=== PATIENT | female | born 2005 | race Two or more races ===

== ENCOUNTER 2023-03-06 18:43 | Emergency (ER) | payer OTHER ==
[~2023-03-06] VITALS: Ht 165.1 cm; Wt 56.8 kg
[2023-03-06 19:30] VITALS: TEMP 98
[2023-03-06 19:40] VITALS: BP 110/84; PULSE 86; RESP 16
[2023-03-06] MEDS: KETOROLAC TROMETHAMINE 30 MG/ML VIAL IM ONE (19:59)
[2023-03-06] MEDS ORDERED: IBUP-1506 PO (20:49)
== END 2023-03-06 21:07 | disposition home or self-care (01) ==
LOC: EMS 18:45
DX: S13.4XXA Sprain of ligaments of cervical spine, initial encounter (principal); V89.2XXA Person injured in unspecified motor-vehicle accident, traffic, initial encounter; Y93.89 Activity, other specified; Y92.89 Other specified places as the place of occurrence of the external cause; Y99.8 Other external cause status
CPT/HCPCS: 99283; 72040; 96372; J1885

== ENCOUNTER 2023-09-21 11:22 | Emergency (ER) | payer OTHER ==
[~2023-09-21] VITALS: Ht 162.6 cm; Wt 68.2 kg
[~2023-09-21 11:22] MED LIST: IBUP-1506 PO
[2023-09-21 11:31] VITALS: BP 113/84; PULSE 102; RESP 18; TEMP 98
[2023-09-21] MEDS: IBUPROFEN 600 MG TABLET PO ONE (14:37)
[2023-09-21] MEDS: ACETAMINOPHEN/CODEINE 300-30 MG TABLET PO ONE (14:37)
[2023-09-21 14:47] LABS: BASOPHILS % (AUTO) 0.4 % (0.0-2.0); EOSINOPHILS % (AUTO) 0.4 % (1.0-6.0); HEMATOCRIT 40.8 % (36-46); HEMOGLOBIN 13.5 g/dL (12.0-16.0); LYMPHOCYTES % (AUTO) 29.2 % (22.0-44.0); MEAN CORPUSCULAR HEMOGLOBIN 31.8 pg (26.0-34.0); MEAN CORPUSCULAR VOLUME 96 fL (80-100); MONOCYTES % (AUTO) 15.1 % (2.0-9.0); NEUTROPHILS # (AUTO) 3.7 K/uL (1.8-7.7); NEUTROPHILS % (AUTO) 54.9 % (40.0-70.0); PLATELET COUNT (AUTO) 246 K/uL (150-450); RED BLOOD CELL COUNT(AUTO) 4.23 MIL/uL (4.00-5.20); RED CELL DISTRIBUTION WIDTH 13.3 % (11.5-14.5); WHITE BLOOD COUNT (AUTO) 6.7 K/uL (4.5-11.0)
[2023-09-21 14:56] LABS: ANION GAP 10 mmol/L (8-16); CALCIUM, TOTAL 9.3 mg/dL (8.8-10.5); CARBON DIOXIDE 27 mmol/L (22-29); CHLORIDE 103 mmol/L (98-107); CREATININE 0.84 mg/dL (0.60-1.30); GLOMERULAR FILTR. RATE CALC > 60 mL/min (>60); GLUCOSE,RANDOM 88 mg/dL (70-110); POTASSIUM 4.6 mmol/L (3.5-5.1); SODIUM SERUM 140 mmol/L (136-145); UREA NITROGEN, BLOOD 19 mg/dL (7-18)
[2023-09-21] MEDS: METHOCARBAMOL 500 MG TABLET PO ONE (14:58)
[2023-09-21] MEDS ORDERED: IBUP-45 PO (16:03)
[2023-09-21] MEDS ORDERED: ACET-2080 PO (16:03)
[2023-09-21] MEDS ORDERED: METH-659 PO (16:03)
== END 2023-09-21 16:21 | disposition home or self-care (01) ==
LOC: EMS 11:22
DX: S29.012A Strain of muscle and tendon of back wall of thorax, initial encounter (principal); G44.209 Tension-type headache, unspecified, not intractable; X58.XXXA Exposure to other specified factors, initial encounter; Y93.89 Activity, other specified; Y92.89 Other specified places as the place of occurrence of the external cause; Y99.8 Other external cause status
CPT/HCPCS: 80048; 84703; 85025; 99284

== ENCOUNTER 2023-11-26 13:35 | Emergency (ER) | payer OTHER ==
[~2023-11-26] VITALS: Ht 162.6 cm; Wt 63.6 kg
[~2023-11-26 13:35] MED LIST changes: +ACET-2080 PO; +IBUP-45 PO; +METH-659 PO
[2023-11-26] MEDS ORDERED: ETON68IM4 SD (13:45)
[2023-11-26] MEDS: ACETAMINOPHEN 500 MG TABLET PO ONE (14:32)
[2023-11-26 14:34] LABS: COVID AG,FIA SOURCE NASAL SWAB
[2023-11-26 14:54] LABS: INFLUENZA TYPE A NEGATIVE FOR TYPE A (NEGATIVE); INFLUENZA TYPE B NEGATIVE FOR TYPE B (NEGATIVE)
[2023-11-26 15:08] LABS: SARS-COV2 (COVID) ANTIGEN,FIA Positive (Negative)
[2023-11-26 17:21] VITALS: BP 107/60; PULSE 72; RESP 18; TEMP 98.3
== END 2023-11-26 17:41 | disposition home or self-care (01) ==
LOC: EMS 13:35
DX: U07.1 COVID-19 (principal)
CPT/HCPCS: 87804; 99283

== ENCOUNTER 2023-12-01 10:01 | Emergency (ER) | payer OTHER ==
[~2023-12-01] VITALS: Ht 162.6 cm; Wt 69.1 kg
[~2023-12-01 10:01] MED LIST changes: -ACET-2080 PO; +ETON68IM4 SD; -IBUP-1506 PO; -IBUP-45 PO; -METH-659 PO
[2023-12-01 10:26] VITALS: BP 126/64; PULSE 70; RESP 20; TEMP 98.3
[2023-12-01 10:32] LABS: COVID AG,FIA SOURCE NASAL SWAB
[2023-12-01 10:52] LABS: SARS-COV2 (COVID) ANTIGEN,FIA Negative (Negative)
== END 2023-12-01 11:37 | disposition home or self-care (01) ==
LOC: EMS 10:01
DX: J98.9 Respiratory disorder, unspecified (principal); Z20.822 Contact with and (suspected) exposure to COVID-19
CPT/HCPCS: 99283

== ENCOUNTER 2024-03-16 19:39 | Emergency (ER) | payer OTHER ==
[~2024-03-16] VITALS: Ht 162.6 cm; Wt 72.7 kg
[2024-03-16 19:53] VITALS: TEMP 98.5
[2024-03-16 21:17] LABS: APPEARANCE,URINE CLEAR (CLEAR); BILIRUBIN,URINE NEGATIVE (NEGATIVE); COLOR,URINE LIGHT YELLOW (YELLOW); GLUCOSE, URINE (UA) NEGATIVE (NEGATIVE); KETONES,URINE NEGATIVE (NEGATIVE); LEUKOCYTE ESTERASE ,URINE NEGATIVE (NEGATIVE); NITRATE,URINE NEGATIVE (NEGATIVE); OCCULT BLOOD,URINE NEGATIVE (NEGATIVE); PROTEIN,URINE NEGATIVE (NEGATIVE); SPECIFIC GRAVITIY, URINE 1.026 (1.003-1.030); UROBILINOGEN,URINE <=1.0 mg/dL (<=1.0)
[2024-03-16 21:47] LABS: BACTERIA,URINE Rare /HPF (None Seen); RBC,URINE None Seen /HPF (0-2); WBC,URINE 0-2 /HPF (0-5)
[2024-03-16 22:35] LABS: BASOPHILS % (AUTO) 0.8 % (0.0-2.0); EOSINOPHILS % (AUTO) 3.5 % (1.0-6.0); HEMATOCRIT 38.6 % (36-46); HEMOGLOBIN 12.8 g/dL (12.0-16.0); LYMPHOCYTES # (AUTO) 2.4 K/uL (1.0-4.8); LYMPHOCYTES % (AUTO) 34.9 % (22.0-44.0); MEAN CORPUSCULAR HEMOGLOBIN 32.4 pg (26.0-34.0); MEAN CORPUSCULAR HGB CONC 33.2 G/dL (31.0-37.0); MEAN CORPUSCULAR VOLUME 98 fL (80-100); MONOCYTES # (AUTO) 0.7 K/uL (0.1-1.0); MONOCYTES % (AUTO) 9.7 % (2.0-9.0); NEUTROPHILS # (AUTO) 3.5 K/uL (1.8-7.7); NEUTROPHILS % (AUTO) 51.1 % (40.0-70.0); PLATELET COUNT (AUTO) 258 K/uL (150-450); RED BLOOD CELL COUNT(AUTO) 3.95 MIL/uL (4.00-5.20); RED CELL DISTRIBUTION WIDTH 12.9 % (11.5-14.5); WHITE BLOOD COUNT (AUTO) 6.8 K/uL (4.5-11.0)
[2024-03-16 22:46] LABS: ANION GAP 7 mmol/L (8-16); CALCIUM, TOTAL 9.3 mg/dL (8.8-10.5); CARBON DIOXIDE 29 mmol/L (22-29); CHLORIDE 103 mmol/L (98-107); CREATININE 0.66 mg/dL (0.60-1.30); GLOMERULAR FILTR. RATE CALC > 60 mL/min (>60); GLUCOSE,RANDOM 90 mg/dL (70-110); POTASSIUM 4.4 mmol/L (3.5-5.1); SODIUM SERUM 139 mmol/L (136-145); UREA NITROGEN, BLOOD 17 mg/dL (7-18)
[2024-03-16 22:52] LABS: ALANINE AMINOTRANSFERASE 22 U/L (12-78); ALBUMIN 3.6 g/dL (3.4-5.0); ALKALINE PHOSPHATASE 57 U/L (46-116); ASPARTATE AMINOTRANSFERASE 27 U/L (15-37); BILIRUBIN,TOTAL 0.3 mg/dL (0.1-1.0); LIPASE 35 U/L (16-77); TOTAL PROTEIN, SERUM 7.2 g/dL (6.4-8.2)
[2024-03-16] MEDS: SODIUM CHLORIDE 0.9% 1,000 ML IV ONE (22:56)
[2024-03-16] MEDS: KETOROLAC TROMETHAMINE 30 MG/ML VIAL IVP ONE (22:56)
[2024-03-16] MEDS ORDERED: SODIUM CHLORIDE 0.9% 100 ML ONE (23:09)
[2024-03-16] MEDS ORDERED: IOHEXOL 350 MG/ML 100 ML VIAL ONE (23:10)
[2024-03-17 01:00] VITALS: BP 109/65; PULSE 61; RESP 15; O2SAT 100
== END 2024-03-17 01:32 | disposition left against medical advice (07) ==
LOC: EMS 19:39
DX: R10.33 Periumbilical pain (principal)
CPT/HCPCS: 99285; 96374; 76830; 76856; 96361; 80048; 80076; 81001; 83690; 84703; 85025; 36415; 74177; Q9967; J1885; J7030; J7050

== ENCOUNTER 2024-04-30 10:38 | Emergency (ER) | payer OTHER ==
[~2024-04-30] VITALS: Ht 162.6 cm; Wt 72.7 kg
[2024-04-30 10:43] VITALS: TEMP 98.3
[2024-04-30 10:47] LABS: COVID AG,FIA SOURCE NASAL SWAB
[2024-04-30 11:24] LABS: SARS-COV2 (COVID) ANTIGEN,FIA Negative (Negative)
[2024-04-30 11:25] LABS: INFLUENZA TYPE A NEGATIVE FOR TYPE A (NEGATIVE); INFLUENZA TYPE B NEGATIVE FOR TYPE B (NEGATIVE)
[2024-04-30] MEDS: GuaiFENesin/D-METHORPHAN [SUGAR-FREE] 200-20MG/10 ML SYRUP UDCUP PO ONE (13:25)
[2024-04-30] MEDS: ACETAMINOPHEN 500 MG TABLET PO ONE (13:25)
[2024-04-30 13:29] LABS: BASOPHILS % (AUTO) 0.5 % (0.0-2.0); EOSINOPHILS % (AUTO) 1.7 % (1.0-6.0); HEMATOCRIT 39.8 % (36-46); HEMOGLOBIN 13.4 g/dL (12.0-16.0); MEAN CORPUSCULAR HEMOGLOBIN 32.5 pg (26.0-34.0); MEAN CORPUSCULAR HGB CONC 33.7 G/dL (31.0-37.0); MEAN CORPUSCULAR VOLUME 96 fL (80-100); MONOCYTES % (AUTO) 12.8 % (2.0-9.0); NEUTROPHILS # (AUTO) 4.8 K/uL (1.8-7.7); PLATELET COUNT (AUTO) 241 K/uL (150-450); RED BLOOD CELL COUNT(AUTO) 4.13 MIL/uL (4.00-5.20); RED CELL DISTRIBUTION WIDTH 12.9 % (11.5-14.5)
[2024-04-30] MEDS ORDERED: IOHEXOL 300 MG/ML 150 ML VIAL PO ONE (13:30)
[2024-04-30] MEDS ORDERED: IOHEXOL 350 MG/ML 100 ML VIAL ONE (13:30)
[2024-04-30 13:45] LABS: ANION GAP 4 mmol/L (8-16); CALCIUM, TOTAL 9.1 mg/dL (8.8-10.5); CARBON DIOXIDE 32 mmol/L (22-29); CHLORIDE 105 mmol/L (98-107); CREATININE 0.71 mg/dL (0.60-1.30); GLOMERULAR FILTR. RATE CALC > 60 mL/min (>60); GLUCOSE,RANDOM 99 mg/dL (70-110); POTASSIUM 4.5 mmol/L (3.5-5.1); SODIUM SERUM 141 mmol/L (136-145); UREA NITROGEN, BLOOD 21 mg/dL (7-18)
[2024-04-30] MEDS: IOHEXOL 240 MG/ML 50 ML VIAL IVP ONE (14:15)
[2024-04-30 15:14] LABS: APPEARANCE,URINE CLEAR (CLEAR); BILIRUBIN,URINE NEGATIVE (NEGATIVE); COLOR,URINE LIGHT YELLOW (YELLOW); GLUCOSE, URINE (UA) NEGATIVE (NEGATIVE); KETONES,URINE NEGATIVE (NEGATIVE); LEUKOCYTE ESTERASE ,URINE NEGATIVE (NEGATIVE); NITRATE,URINE NEGATIVE (NEGATIVE); OCCULT BLOOD,URINE NEGATIVE (NEGATIVE); PROTEIN,URINE TRACE mg/dL (NEGATIVE); SPECIFIC GRAVITIY, URINE 1.022 (1.003-1.030); UROBILINOGEN,URINE <=1.0 mg/dL (<=1.0)
[2024-04-30 15:41] LABS: BACTERIA,URINE Few /HPF (None Seen); RBC,URINE 0-2 /HPF (0-2); WBC,URINE 0-2 /HPF (0-5)
[2024-04-30] MEDS ORDERED: IBUP-1554 PO (16:13)
[2024-04-30] MEDS ORDERED: GUAIFDM PO (16:13)
[2024-04-30] MEDS ORDERED: HYDR-4062 PO (16:13)
[2024-04-30] MEDS ORDERED: CEPH-558 PO (16:13)
[2024-04-30 17:27] VITALS: BP 114/73; PULSE 84; RESP 16; O2SAT 98
== END 2024-04-30 17:44 | disposition home or self-care (01) ==
LOC: EMS 10:40
DX: R19.00 Intra-abdominal and pelvic swelling, mass and lump, unspecified site (principal); H10.9 Unspecified conjunctivitis; R05.9 Cough, unspecified; J06.9 Acute upper respiratory infection, unspecified; Z20.822 Contact with and (suspected) exposure to COVID-19
CPT/HCPCS: 99285; 74177; 96374; 87426; 80048; 81001; 84703; 85025; 87804; 36415; Q9967; Q9966

== ENCOUNTER 2024-05-27 15:04 | Emergency (ER) | payer OTHER ==
[~2024-05-27] VITALS: Ht 165.1 cm; Wt 74.5 kg
[~2024-05-27 15:04] MED LIST changes: +CEPH-558 PO; +GUAIFDM PO; +HYDR-4062 PO; +IBUP-1554 PO
[2024-05-27] MEDS: MORPHINE SULFATE 2 MG/ML SYRINGE IVP ONE ×2 (16:00→20:36)
[2024-05-27] MEDS: ONDANSETRON HCL 4 MG/2 ML VIAL IVP ONE (16:00)
[2024-05-27] MEDS ORDERED: GADOTERATE MEGLUMINE 10 MMOL/20 ML VIAL IVP ONE (16:03)
[2024-05-27 16:22] LABS: BASOPHILS % (AUTO) 0.7 % (0.0-2.0); EOSINOPHILS % (AUTO) 2.5 % (1.0-6.0); LYMPHOCYTES # (AUTO) 1.9 K/uL (1.0-4.8); LYMPHOCYTES % (AUTO) 33.2 % (22.0-44.0); MEAN CORPUSCULAR HEMOGLOBIN 31.7 pg (26.0-34.0); MEAN CORPUSCULAR HGB CONC 32.4 G/dL (31.0-37.0); MEAN CORPUSCULAR VOLUME 98 fL (80-100); MONOCYTES # (AUTO) 0.8 K/uL (0.1-1.0); NEUTROPHILS % (AUTO) 50.6 % (40.0-70.0); PLATELET COUNT (AUTO) 220 K/uL (150-450); RED BLOOD CELL COUNT(AUTO) 3.79 MIL/uL (4.00-5.20); RED CELL DISTRIBUTION WIDTH 13.2 % (11.5-14.5); WHITE BLOOD COUNT (AUTO) 5.9 K/uL (4.5-11.0)
[2024-05-27 16:29] LABS: ANION GAP 7 mmol/L (8-16); CARBON DIOXIDE 31 mmol/L (22-29); CHLORIDE 103 mmol/L (98-107); CREATININE 0.67 mg/dL (0.60-1.30); GLUCOSE,RANDOM 88 mg/dL (70-110); POTASSIUM 3.9 mmol/L (3.5-5.1); SODIUM SERUM 141 mmol/L (136-145); UREA NITROGEN, BLOOD 15 mg/dL (7-18)
[2024-05-27 16:30] LABS: CALCIUM, TOTAL 8.8 mg/dL (8.8-10.5); GLOMERULAR FILTR. RATE CALC > 60 mL/min (>60)
[2024-05-27 16:34] LABS: ALANINE AMINOTRANSFERASE 45 U/L (12-78); ALBUMIN 3.3 g/dL (3.4-5.0); ALKALINE PHOSPHATASE 63 U/L (46-116); ASPARTATE AMINOTRANSFERASE 37 U/L (15-37); BILIRUBIN,TOTAL 0.4 mg/dL (0.1-1.0)
[2024-05-27 16:57] LABS: APPEARANCE,URINE CLEAR (CLEAR); BILIRUBIN,URINE NEGATIVE (NEGATIVE); COLOR,URINE LIGHT YELLOW (YELLOW); GLUCOSE, URINE (UA) NEGATIVE (NEGATIVE); KETONES,URINE NEGATIVE (NEGATIVE); LEUKOCYTE ESTERASE ,URINE NEGATIVE (NEGATIVE); NITRATE,URINE NEGATIVE (NEGATIVE); OCCULT BLOOD,URINE NEGATIVE (NEGATIVE); PH,URINE 7.5 (5.0-8.0); PROTEIN,URINE NEGATIVE (NEGATIVE); SPECIFIC GRAVITIY, URINE 1.028 (1.003-1.030); UROBILINOGEN,URINE <=1.0 mg/dL (<=1.0)
[2024-05-27] MEDS: MORPHINE SULFATE 4 MG/ML SYRINGE IVP ONE (23:38)
[2024-05-27 23:46] VITALS: BP 119/68; PULSE 77; RESP 18; TEMP 97.3; O2SAT 100
== END 2024-05-27 23:56 | disposition home or self-care (01) ==
LOC: EMS 15:04
DX: R10.12 Left upper quadrant pain (principal); R11.2 Nausea with vomiting, unspecified
CPT/HCPCS: 72197; 99285; 96374; 96375; 80048; 80076; 81003; 84703; 85025; 36415; 74183; 96376; A9575; J2270 ×2; J2405